=== PATIENT | female | born 1955 | race Caucasian/White ===

== ENCOUNTER → 2017-03-11 | Outpatient (CLI) | payer OTHER ==
[2017-03-11 11:55] LABS: BLOOD UREA NITROGEN 40 mg/dL (7-18)
[2017-03-11 11:58] LABS: ASPARTATE AMINO TRANSFERASE 11 U/L (15-37)
== END | disposition home or self-care (01) ==
LOC: LAB 11:31
PROVIDERS: ATTEND Family Medicine
DX: E11.22 Type 2 diabetes mellitus with diabetic chronic kidney disease (principal); N18.9 Chronic kidney disease, unspecified
CPT/HCPCS: 36415; 80053; 83036

== ENCOUNTER → 2017-04-09 | Outpatient (CLI) | payer OTHER | END | disposition home or self-care (01) | LOC: CFH 09:09 | PROVIDERS: ATTEND Family Medicine | DX: Z12.31 Encounter for screening mammogram for malignant neoplasm of breast (principal); M85.88 Other specified disorders of bone density and structure, other site | CPT/HCPCS: 77063; 77080; G0202 ==

== ENCOUNTER → 2017-05-28 | Outpatient (CLI) | payer OTHER ==
[2017-05-28 14:58] LABS: PATH.CAST-FLAG NOT PRESENT; SPERM-FLAG NOT PRESENT; SRC-FLAG NOT PRESENT; XTAL-FLAG NOT PRESENT; YLC-FLAG NOT PRESENT
[2017-05-28 15:01] LABS: ASPARTATE AMINO TRANSFERASE 15 U/L (15-37); BLOOD UREA NITROGEN 25 mg/dL (7-18)
[2017-05-30 12:06] LABS: CREATININE URINE 27.8 mg/dL (Not Estab.)
== END | disposition home or self-care (01) ==
LOC: LAB 14:30
PROVIDERS: ATTEND Family Medicine
DX: I12.9 Hypertensive chronic kidney disease with stage 1 through stage 4 chronic kidney disease, or unspecified chronic kidney disease (principal); E11.22 Type 2 diabetes mellitus with diabetic chronic kidney disease; N18.9 Chronic kidney disease, unspecified; E78.2 Mixed hyperlipidemia; E55.9 Vitamin D deficiency, unspecified
CPT/HCPCS: 36415; 80053; 80061; 81001; 82043; 82306; 82570; 83036

== ENCOUNTER → 2017-06-26 | Outpatient (CLI) | payer OTHER | END | disposition home or self-care (01) | LOC: CFH 14:49 | PROVIDERS: ATTEND Family Medicine | DX: N18.9 Chronic kidney disease, unspecified (principal); E04.2 Nontoxic multinodular goiter | CPT/HCPCS: 76536; 76770 ==

== ENCOUNTER → 2017-08-19 | Outpatient (CLI) | payer OTHER ==
[2017-08-19 13:56] LABS: BASOPHILS # (AUTO) 0.05 x10^3/uL (0-0.1); BASOPHILS % (AUTO) 1 % (0-1); EOSINOPHILS # (AUTO) 0.18 x10^3/uL (0-0.4); EOSINOPHILS % (AUTO) 3 % (1-7); LYMPHOCYTES # (AUTO) 2.59 x10^3/uL (1-3.4); LYMPHOCYTES % (AUTO) 37 % (22-44); MD NO; MEAN CORPUSCULAR VOLUME 90.9 fL (80-100); MONOCYTES # (AUTO) 0.38 x10^3/uL (0.2-0.8); MONOCYTES % (AUTO) 5 % (2-9); NEUTROPHILS # (AUTO) 3.81 x10^3/uL (1.8-6.8); NEUTROPHILS % (AUTO) 54 % (42-75); PLATELET COUNT 230 x10^3/uL (130-400); RED BLOOD COUNT 4.45 x10^6/uL (3.82-5.3); RED CELL DISTRIBUTION WIDTH 14.1 % (9.6-15.2)
[2017-08-19 14:00] LABS: MICROSCOPIC INDICATED
[2017-08-19 14:10] LABS: ALANINE AMINOTRANSFERASE 19 U/L (12-78); ALBUMIN 3.2 g/dL (3.4-5.0); ANION GAP 7 mmol/L (5-15); CALCIUM 8.6 mg/dL (8.5-10.1); CHLORIDE 110 mmol/L (98-107)
[2017-08-19 14:15] LABS: CULTURE INDICATED? NO
[2017-08-19 14:21] LABS: ALKALINE PHOSPHATASE 84 U/L (45-117); BILIRUBIN,TOTAL 0.3 mg/dL (0.2-1.0); CHOL/HDL RATIO 2.3; CHOLESTEROL, TOTAL 196 mg/dL (140-239); CREATININE 1.42 mg/dL (0.55-1.02); HDL CHOL % 44 % (28-40); HDL CHOLESTEROL (DIRECT) 86 mg/dL (40-60); LDL CHOLESTEROL,CALCULATED 72 mg/dL (54-169); LDL/HDL RATIO 0.8 (0.5-3.0); TOTAL PROTEIN 7.5 g/dL (6.4-8.2); TRIGLYCERIDES 191 mg/dL (50-200); VLDL CHOLESTEROL 38 mg/dL (0-25)
[2017-08-19 15:26] LABS: HEMOGLOBIN A1C 8.6 % (4.2-6.3)
== END ==
LOC: LAB 13:23
PROVIDERS: ATTEND Family Medicine
DX: I12.9 Hypertensive chronic kidney disease with stage 1 through stage 4 chronic kidney disease, or unspecified chronic kidney disease (principal); E11.22 Type 2 diabetes mellitus with diabetic chronic kidney disease; E78.2 Mixed hyperlipidemia; N18.9 Chronic kidney disease, unspecified; E04.9 Nontoxic goiter, unspecified; E55.9 Vitamin D deficiency, unspecified
CPT/HCPCS: 36415; 80053; 80061; 81001; 82043; 82306; 82570; 83036; 84443; 85025

== ENCOUNTER → 2018-02-25 | Outpatient (CLI) | payer OTHER ==
[2018-02-25 14:57] LABS: BASOPHILS # (AUTO) 0.05 x10^3/uL (0-0.1); BASOPHILS % (AUTO) 1 % (0-1); EOSINOPHILS # (AUTO) 0.27 x10^3/uL (0-0.4); EOSINOPHILS % (AUTO) 4 % (1-7); LYMPHOCYTES # (AUTO) 2.38 x10^3/uL (1-3.4); LYMPHOCYTES % (AUTO) 34 % (22-44); MD NO; MEAN CORPUSCULAR HEMOGLOBIN 30.8 pg (27.0-34.8); MEAN CORPUSCULAR VOLUME 90.7 fL (80-100); MEAN PLATELET VOLUME 8.3 fL (7.4-10.4); MONOCYTES # (AUTO) 0.42 x10^3/uL (0.2-0.8); MONOCYTES % (AUTO) 6 % (2-9); NEUTROPHILS # (AUTO) 3.85 x10^3/uL (1.8-6.8); NEUTROPHILS % (AUTO) 55 % (42-75); PLATELET COUNT 191 x10^3/uL (130-400); RED BLOOD COUNT 4.11 x10^6/uL (3.82-5.3); RED CELL DISTRIBUTION WIDTH 13.3 % (9.6-15.2)
[2018-02-25 15:04] LABS: ALANINE AMINOTRANSFERASE 21 U/L (12-78); ANION GAP 7 mmol/L (5-15); CALCIUM 8.6 mg/dL (8.5-10.1); CHLORIDE 110 mmol/L (98-107); CREATININE 1.78 mg/dL (0.55-1.02)
[2018-02-25 15:06] LABS: ALKALINE PHOSPHATASE 112 U/L (45-117); BILIRUBIN,TOTAL 0.3 mg/dL (0.2-1.0); TOTAL PROTEIN 7.3 g/dL (6.4-8.2)
[2018-02-25 15:15] LABS: CREATININE,URINE RANDOM 26.4 mg/dL
[2018-02-25 15:24] LABS: MICROSCOPIC INDICATED
== END | disposition home or self-care (01) ==
LOC: LAB 14:32
PROVIDERS: ATTEND Internal Medicine Nephrology
DX: N18.9 Chronic kidney disease, unspecified (principal)
CPT/HCPCS: 36415; 80053; 81001; 82570; 84100; 84156; 85025

== ENCOUNTER → 2018-03-21 | Outpatient (CLI) | payer OTHER ==
[2018-03-21 16:08] LABS: % IRON SATURATION 30 % (20-55); ANION GAP 5 mmol/L (5-15); CALCIUM 8.8 mg/dL (8.5-10.1); CHLORIDE 114 mmol/L (98-107); CREATININE 1.51 mg/dL (0.55-1.02); IRON LEVEL 71 mcg/dL (50-170); TOTAL IRON BINDING CAPACITY 234 mcg/dL (250-450)
[2018-03-21 16:32] LABS: CREATININE,URINE RANDOM 17.4 mg/dL; MICROSCOPIC INDICATED
[2018-03-21 16:33] LABS: CULTURE INDICATED? NO
== END | disposition home or self-care (01) ==
LOC: LAB 14:52
PROVIDERS: ATTEND Internal Medicine Nephrology
DX: N18.9 Chronic kidney disease, unspecified (principal)
CPT/HCPCS: 36415; 80069; 80074; 81001; 81050; 82306; 82570; 82728; 83520; 83540; 83550; 83883; 83970; 84156; 84550; 86160; 86162; 86256; 86430; 86701; 86702

== ENCOUNTER → 2018-04-08 | Outpatient (CLI) | payer OTHER ==
[2018-04-08 15:00] LABS: BASOPHILS # (AUTO) 0.05 x10^3/uL (0-0.1); BASOPHILS % (AUTO) 1 % (0-1); EOSINOPHILS # (AUTO) 0.23 x10^3/uL (0-0.4); EOSINOPHILS % (AUTO) 3 % (1-7); LYMPHOCYTES # (AUTO) 1.79 x10^3/uL (1-3.4); LYMPHOCYTES % (AUTO) 26 % (22-44); MD NO; MEAN CORPUSCULAR HEMOGLOBIN 31.3 pg (27.0-34.8); MEAN CORPUSCULAR HGB CONC 33.7 g/dL (32.4-35.8); MEAN CORPUSCULAR VOLUME 92.8 fL (80-100); MEAN PLATELET VOLUME 8.1 fL (7.4-10.4); MONOCYTES # (AUTO) 0.46 x10^3/uL (0.2-0.8); MONOCYTES % (AUTO) 7 % (2-9); NEUTROPHILS # (AUTO) 4.43 x10^3/uL (1.8-6.8); NEUTROPHILS % (AUTO) 64 % (42-75); PLATELET COUNT 215 x10^3/uL (130-400); RED BLOOD COUNT 3.94 x10^6/uL (3.82-5.3); RED CELL DISTRIBUTION WIDTH 13.7 % (9.6-15.2)
[2018-04-08 15:11] LABS: ANION GAP 7 mmol/L (5-15); CALCIUM 8.6 mg/dL (8.5-10.1); CHLORIDE 113 mmol/L (98-107); CREATININE 1.82 mg/dL (0.55-1.02)
[2018-04-08 15:12] LABS: ALANINE AMINOTRANSFERASE 23 U/L (12-78); CHOLESTEROL, TOTAL 201 mg/dL (140-239)
[2018-04-08 15:22] LABS: ALKALINE PHOSPHATASE 105 U/L (45-117); BILIRUBIN,TOTAL 0.3 mg/dL (0.2-1.0); CHOL/HDL RATIO 2.5; HDL CHOL % 41 % (28-40); HDL CHOLESTEROL (DIRECT) 82 mg/dL (40-60); LDL CHOLESTEROL,CALCULATED 87 mg/dL (54-169); LDL/HDL RATIO 1.1 (0.5-3.0); TOTAL PROTEIN 7.4 g/dL (6.4-8.2); TRIGLYCERIDES 158 mg/dL (50-200); VLDL CHOLESTEROL 32 mg/dL (0-25)
[2018-04-08 15:49] LABS: HEMOGLOBIN A1C 8.4 % (4.2-6.3)
[2018-04-08 16:04] LABS: MICROSCOPIC INDICATED
== END | disposition home or self-care (01) ==
LOC: LAB 14:48
PROVIDERS: ATTEND Family Medicine
DX: I12.9 Hypertensive chronic kidney disease with stage 1 through stage 4 chronic kidney disease, or unspecified chronic kidney disease (principal); N18.9 Chronic kidney disease, unspecified; E11.65 Type 2 diabetes mellitus with hyperglycemia; E78.2 Mixed hyperlipidemia; E04.9 Nontoxic goiter, unspecified
CPT/HCPCS: 36415; 80053; 80061; 81001; 82043; 82570; 83036; 84443; 85025

== ENCOUNTER → 2018-04-19 | Outpatient (CLI) | payer OTHER ==
[~2018-04-19] MED LIST: AMLO5TAB7 PO; EXEN5PEN2 BC; INSU100V8 SQ; LINA5TAB PO; LISI-170 PO; ROSU10TA PO; VIT D; ZOLP-413 PO
[2018-04-19 09:07] LABS: BASOPHILS # (AUTO) 0.07 x10^3/uL (0-0.1); BASOPHILS % (AUTO) 1 % (0-1); EOSINOPHILS # (AUTO) 0.26 x10^3/uL (0-0.4); EOSINOPHILS % (AUTO) 4 % (1-7); LYMPHOCYTES # (AUTO) 2.15 x10^3/uL (1-3.4); LYMPHOCYTES % (AUTO) 29 % (22-44); MD NO; MEAN CORPUSCULAR HEMOGLOBIN 30.6 pg (27.0-34.8); MEAN CORPUSCULAR HGB CONC 33.6 g/dL (32.4-35.8); MEAN CORPUSCULAR VOLUME 91.3 fL (80-100); MEAN PLATELET VOLUME 8.1 fL (7.4-10.4); MONOCYTES % (AUTO) 7 % (2-9); NEUTROPHILS # (AUTO) 4.49 x10^3/uL (1.8-6.8); NEUTROPHILS % (AUTO) 60 % (42-75); PLATELET COUNT 206 x10^3/uL (130-400); RED BLOOD COUNT 3.96 x10^6/uL (3.82-5.3); RED CELL DISTRIBUTION WIDTH 13.4 % (9.6-15.2)
[2018-04-19 09:19] LABS: ALBUMIN 3.2 g/dL (3.4-5.0); ANION GAP 8 mmol/L (5-15); CALCIUM 8.4 mg/dL (8.5-10.1); CHLORIDE 108 mmol/L (98-107); CREATININE 1.64 mg/dL (0.55-1.02)
== END | disposition home or self-care (01) ==
LOC: LAB 08:25
PROVIDERS: ATTEND Internal Medicine Nephrology
DX: N18.9 Chronic kidney disease, unspecified (principal)
CPT/HCPCS: 36415; 80069; 82570; 84156; 85025

== ENCOUNTER 2018-04-21 05:35 | Day surgery (SDC) | payer OTHER ==
[~2018-04-21] VITALS: Ht 170.2 cm; Wt 84.1 kg
[2018-04-21 06:24] VITALS: BP 155/99
[2018-04-21] MEDS ORDERED: INSU100V8 SQ (06:48)
[2018-04-21] MEDS ORDERED: AMLO5TAB7 PO (07:06)
[2018-04-21] MEDS ORDERED: LINA5TAB PO (07:06)
[2018-04-21] MEDS ORDERED: ZOLP-413 PO (07:06)
[2018-04-21] MEDS ORDERED: VIT D (07:06)
[2018-04-21] MEDS ORDERED: LISI-170 PO (07:06)
[2018-04-21] MEDS ORDERED: EXEN5PEN2 BC (07:06)
[2018-04-21] MEDS ORDERED: ROSU10TA PO (07:06)
[2018-04-21 07:30] LABS: PROTHROMBIN TIME 10.4 Seconds (9.6-11.5)
[2018-04-21] MEDS ORDERED: FENTANYL PF 100 MCG/2ML ONE (07:43)
[2018-04-21] MEDS ORDERED: FLUMAZENIL 0.1 MG/1 ML, 5ML ONE (07:44)
[2018-04-21] MEDS ORDERED: NALOXONE 1 MG/ML, 2ML ONE (07:44)
[2018-04-21] MEDS ORDERED: MIDAZOLAM 1 MG/ML, 5ML ONE (07:44)
[2018-04-21] MEDS ORDERED: LIDOCAINE-MPF 1%, 5ML ONE (07:46)
[2018-04-21] MEDS ORDERED: morphine SULFATE 10 MG/ML, 1ML ONE (09:22)
[2018-04-21] MEDS ORDERED: PROMETHAZINE 25 MG/ML, 1ML IM ONE (10:00)
[2018-04-21] MEDS ORDERED: MEPERIDINE/PF 25MG/0.5ML IM PRN (10:00)
[2018-04-21] MEDS ORDERED: MORPHINE SULFATE 4 MG/ML, 1ML IVPush ONE (10:00)
== END 2018-04-21 13:05 | disposition home or self-care (01) ==
LOC: OUT 05:35 → EDSTATUS 07:30 → OUT 13:05
PROVIDERS: ATTEND Internal Medicine Nephrology
DX: E11.22 Type 2 diabetes mellitus with diabetic chronic kidney disease (principal); I12.9 Hypertensive chronic kidney disease with stage 1 through stage 4 chronic kidney disease, or unspecified chronic kidney disease; N18.9 Chronic kidney disease, unspecified; E11.21 Type 2 diabetes mellitus with diabetic nephropathy
CPT/HCPCS: 50200; 77012; 82962; 85610; 88300; 99156; J2250; J3010; 99157; J2310

== ENCOUNTER → 2018-07-01 | Outpatient (CLI) | payer OTHER ==
[~2018-07-01] MED LIST changes: +AMLO-150 PO; -AMLO5TAB7 PO
[2018-07-01 14:48] LABS: BASOPHILS # (AUTO) 0.05 x10^3/uL (0-0.1); BASOPHILS % (AUTO) 1 % (0-1); EOSINOPHILS % (AUTO) 3 % (1-7); LYMPHOCYTES # (AUTO) 1.69 x10^3/uL (1-3.4); LYMPHOCYTES % (AUTO) 27 % (22-44); MD NO; MEAN CORPUSCULAR HEMOGLOBIN 31.2 pg (27.0-34.8); MEAN CORPUSCULAR HGB CONC 33.8 g/dL (32.4-35.8); MEAN CORPUSCULAR VOLUME 92.5 fL (80-100); MEAN PLATELET VOLUME 7.9 fL (7.4-10.4); MONOCYTES % (AUTO) 6 % (2-9); NEUTROPHILS # (AUTO) 4.03 x10^3/uL (1.8-6.8); NEUTROPHILS % (AUTO) 63 % (42-75); PLATELET COUNT 193 x10^3/uL (130-400); RED BLOOD COUNT 3.94 x10^6/uL (3.82-5.3); RED CELL DISTRIBUTION WIDTH 13.7 % (9.6-15.2)
[2018-07-01 14:58] LABS: MICROSCOPIC AUTO
[2018-07-01 15:00] LABS: ALANINE AMINOTRANSFERASE 21 U/L (12-78); ALBUMIN 3.3 g/dL (3.4-5.0); ANION GAP 7 mmol/L (5-15); CALCIUM 8.6 mg/dL (8.5-10.1); CHLORIDE 110 mmol/L (98-107); CREATININE 1.96 mg/dL (0.55-1.02)
[2018-07-01 15:11] LABS: ALKALINE PHOSPHATASE 97 U/L (45-117); BILIRUBIN,TOTAL 0.2 mg/dL (0.2-1.0); CHOL/HDL RATIO 2.4; CHOLESTEROL, TOTAL 196 mg/dL (140-239); HDL CHOL % 42 % (28-40); HDL CHOLESTEROL (DIRECT) 82 mg/dL (40-60); LDL CHOLESTEROL,CALCULATED 85 mg/dL (54-169); TOTAL PROTEIN 7.5 g/dL (6.4-8.2); TRIGLYCERIDES 144 mg/dL (50-200); VLDL CHOLESTEROL 29 mg/dL (0-25)
[2018-07-01 17:03] LABS: HEMOGLOBIN A1C 6.8 % (4.2-6.3)
== END | disposition home or self-care (01) ==
LOC: LAB 14:24
PROVIDERS: ATTEND Family Medicine
DX: E78.2 Mixed hyperlipidemia (principal); I12.0 Hypertensive chronic kidney disease with stage 5 chronic kidney disease or end stage renal disease; E11.22 Type 2 diabetes mellitus with diabetic chronic kidney disease; N18.9 Chronic kidney disease, unspecified; E03.9 Hypothyroidism, unspecified; E55.9 Vitamin D deficiency, unspecified
CPT/HCPCS: 36415; 80053; 80061; 81001; 82043; 82306; 82570; 83036; 84443; 85025

== ENCOUNTER → 2018-07-29 | Outpatient (CLI) | payer OTHER ==
[2018-07-29 14:55] LABS: MICROSCOPIC AUTO
[2018-07-29 14:56] LABS: CULTURE INDICATED? NO
[2018-07-29 15:00] LABS: BASOPHILS # (AUTO) 0.04 x10^3/uL (0-0.1); BASOPHILS % (AUTO) 1 % (0-1); EOSINOPHILS # (AUTO) 0.18 x10^3/uL (0-0.4); EOSINOPHILS % (AUTO) 3 % (1-7); LYMPHOCYTES # (AUTO) 1.85 x10^3/uL (1-3.4); LYMPHOCYTES % (AUTO) 28 % (22-44); MD NO; MEAN CORPUSCULAR HEMOGLOBIN 31.1 pg (27.0-34.8); MEAN CORPUSCULAR VOLUME 91.5 fL (80-100); MEAN PLATELET VOLUME 7.9 fL (7.4-10.4); MONOCYTES % (AUTO) 5 % (2-9); NEUTROPHILS # (AUTO) 4.22 x10^3/uL (1.8-6.8); NEUTROPHILS % (AUTO) 64 % (42-75); PLATELET COUNT 205 x10^3/uL (130-400); RED BLOOD COUNT 3.92 x10^6/uL (3.82-5.3); RED CELL DISTRIBUTION WIDTH 13.8 % (9.6-15.2)
[2018-07-29 15:03] LABS: CALCIUM 8.5 mg/dL (8.5-10.1); CHLORIDE 114 mmol/L (98-107)
[2018-07-29 15:11] LABS: % IRON SATURATION 24 % (20-55); ALBUMIN 3.2 g/dL (3.4-5.0); ANION GAP 6 mmol/L (5-15); CREATININE 2.15 mg/dL (0.55-1.02); IRON LEVEL 65 mcg/dL (50-170); TOTAL IRON BINDING CAPACITY 269 mcg/dL (250-450)
[2018-07-29 16:00] LABS: CREATININE,URINE RANDOM 38.2 mg/dL
== END | disposition home or self-care (01) ==
LOC: LAB 14:27
PROVIDERS: ATTEND Internal Medicine Nephrology
DX: E11.22 Type 2 diabetes mellitus with diabetic chronic kidney disease (principal); I12.9 Hypertensive chronic kidney disease with stage 1 through stage 4 chronic kidney disease, or unspecified chronic kidney disease; N18.9 Chronic kidney disease, unspecified
CPT/HCPCS: 36415; 80069; 81001; 82306; 82570; 82728; 83540; 83550; 83970; 84156; 85025

== ENCOUNTER 2018-10-23 15:10 | Inpatient (IN) | payer OTHER ==
[~2018-10-23] VITALS: Ht 170.2 cm; Wt 87.9 kg
[~2018-10-23 15:10] MED LIST changes: -ROSU10TA PO; +ROSU10TA2 PO
--- NOTE | 2018-10-23 15:23 | NUR ---
NO ANSWER X 1 WHEN CALLED FROM [facility]
--- NOTE | 2018-10-23 15:35 | NUR ---
FINGERSTICK GLUCOSE 37 IN TRIAGE. PT GIVEN JUICE IN TRIAGE, TOLERATING PO INTAKE AT THIS TIME. PT WHEELED TO ROOM 1.
--- NOTE | 2018-10-23 15:46 | NUR ---
PT TO ROOM 1 W/ C/O FEELING SHAKY, DISORIENTED, CLAMMY. PT DRINKING JUICE UPON HEEL PADDER. PT STATES SHE FELT THE SAME WAY THIS AM. BS WAS LOW. DRANK JUICE RECHECKED BS AT 1400 AND WAS 87. WHEN PT ARRIVED TO WORK PT HAS SX AND CALLED DAUGHTER WHO BROUGHT PT TO ED. PT POSITIONED ON RVERNAL. PIV INITIATED. PT ENCOURAGED TO FINISH JUICE.
[2018-10-23 15:57] LABS: BASOPHILS # (AUTO) 0.05 x10^3/uL (0-0.1); BASOPHILS % (AUTO) 1 % (0-1); EOSINOPHILS # (AUTO) 0.19 x10^3/uL (0-0.4); EOSINOPHILS % (AUTO) 2 % (1-7); LYMPHOCYTES # (AUTO) 3.02 x10^3/uL (1-3.4); LYMPHOCYTES % (AUTO) 36 % (22-44); MD NO; MEAN CORPUSCULAR HEMOGLOBIN 31.1 pg (27.0-34.8); MEAN CORPUSCULAR HGB CONC 33.7 g/dL (32.4-35.8); MEAN CORPUSCULAR VOLUME 92.1 fL (80-100); MEAN PLATELET VOLUME 8.5 fL (7.4-10.4); MONOCYTES # (AUTO) 0.57 x10^3/uL (0.2-0.8); MONOCYTES % (AUTO) 7 % (2-9); NEUTROPHILS # (AUTO) 4.65 x10^3/uL (1.8-6.8); NEUTROPHILS % (AUTO) 55 % (42-75); PLATELET COUNT 217 x10^3/uL (130-400); RED BLOOD COUNT 4.03 x10^6/uL (3.82-5.3); RED CELL DISTRIBUTION WIDTH 13.9 % (9.6-15.2)
[2018-10-23 16:08] LABS: ALANINE AMINOTRANSFERASE 36 U/L (12-78); ANION GAP 7 mmol/L (5-15); CALCIUM 8.4 mg/dL (8.5-10.1); CHLORIDE 119 mmol/L (98-107); CREATININE 2.87 mg/dL (0.55-1.02)
[2018-10-23 16:11] LABS: ALKALINE PHOSPHATASE 130 U/L (45-117); BILIRUBIN,TOTAL 0.3 mg/dL (0.2-1.0)
--- NOTE | 2018-10-23 16:24 | NUR ---
PT RESTING ON GURNEY. H[place]. VSS. PT STATES SHE FEELS MUCH IMPROVED AFTER JUICE.
[2018-10-23] MEDS ORDERED: SODIUM CHLORIDE FLUSH 10ML SYR IVF ONE (16:30)
--- NOTE | 2018-10-23 16:43 | NUR ---
PT AWARE OF NEED FOR UA AND STOOL SAMPLE.
[2018-10-23 17:14] LABS: MICROSCOPIC AUTO
[2018-10-23 17:15] LABS: CULTURE INDICATED? NO
[2018-10-23] MEDS ORDERED: SODIUM CHLORIDE 0.9% 1,000ML IVBOLUS ONE (17:30)
--- NOTE | 2018-10-23 17:30 | NUR ---
PT PROVIDED W/ CRACKERS, PEANUT BUTTER, AND JUICE WHILE AWAITING PT MEAL TRAY. PER ERP DR. PARKER NO NEED FOR IV DEXTROSE AT THIS TIME W/ BS AT 68.
--- NOTE | 2018-10-23 17:43 | NUR ---
PT PROVIDED W/ MEAL TRAY.
--- NOTE | 2018-10-23 18:12 | NUR ---
PT FINISHED EATING, DRANK JUICE, AND BS RECHECKED. PT BS 64. ERP NOTIFIED.
[2018-10-23] MEDS ORDERED: DEXTROSE 50%, 50ML SYRINGE IVPush ONE (18:30)
--- NOTE | 2018-10-23 18:55 | NUR ---
[facility] TO SEND D5W 1000 ML BAG. PHARMACY TO SEND PROTOCOL.
[2018-10-23 19:07] LABS: CLOSTRIDIUM DIFFICILE ANTIGEN NEGATIVE; CLOSTRIDIUM DIFFICILE TOXIN NEGATIVE (Negative)
--- NOTE | 2018-10-23 19:09 | NUR ---
REPORT GIVEN TO RACHEL COTTRELL RN.
[2018-10-23] MEDS: DEXTROSE 5% 1,000 ML IV SCH (19:11)
--- NOTE | 2018-10-23 19:12 | NUR ---
REPORT FROM DIETER LEAHY. D5W STARTED. WILL RECHECK BS AFTER 1 HOUR.
[2018-10-23] MEDS ORDERED: ONDANSETRON ODT 4 MG PO PRN (20:00)
[2018-10-23] MEDS ORDERED: BISACODYL 10 MG SUPP PR PRN (20:00)
[2018-10-23] MEDS ORDERED: POLYETHYLENE GLYCOL 17 GM PACKET PO PRN (20:00)
[2018-10-23] MEDS ORDERED: hydrALAzine 20 MG/ML, 1ML IVPush PRN (20:00)
[2018-10-23] MEDS ORDERED: DOCUSATE 100 MG CAPSULE PO PRN (20:00)
[2018-10-23] MEDS ORDERED: morphine SULFATE 10 MG/ML, 1ML IVPush PRN (20:00)
[2018-10-23] MEDS ORDERED: OXYcodone IR 5MG TABLET PO PRN (20:00)
[2018-10-23] MEDS ORDERED: ONDANSETRON 2MG/ML, 2ML IVPush PRN (20:00)
[2018-10-23] MEDS ORDERED: ACETAMINOPHEN 325 MG TABLET PO PRN (20:00)
[2018-10-23] MEDS ORDERED: PROMETHAZINE 25 MG/ML, 1ML IM PRN (20:00)
--- NOTE | 2018-10-23 20:19 | NUR ---
FSBG 102. PT TO BE ADMITTED. PT HAS NO NEEDS AT THIS THIS TIME
[2018-10-23] MEDS: D5%-0.9% NACL 1,000 ML IV SCH (20:29)
[2018-10-23 20:32] LABS: FREE T4 (FREE THYROXINE) 1.04 ng/dL (0.76-1.46); THYROID STIMULATING HORMONE 0.317 mIU/L (0.358-3.740)
[2018-10-23 20:41] LABS: HEMOGLOBIN A1C 6.4 % (4.2-6.3)
[2018-10-23] MEDS: LISINOPRIL 20 MG TABLET PO SCH (21:00)
[2018-10-23] MEDS: ZOLPIDEM 5MG TABLET PO SCH (21:00)
[2018-10-23] MEDS: INSULIN LISPRO 100 UNITS/ML, PEN SQ-INSULIN SCH (21:00)
[2018-10-23] MEDS: ATORVASTATIN 20 MG TABLET PO SCH (21:00)
[2018-10-23 21:10] VITALS: BP 170/86
[2018-10-24 00:22] VITALS: BP 158/83
[2018-10-24] MEDS: DEXTROSE 5% 1,000 ML IV SCH (01:10)
[2018-10-24] MEDS ORDERED: METO-282 PO (02:29)
[2018-10-24] MEDS ORDERED: GABA-826 PO (02:29)
[2018-10-24 04:51] LABS: BASOPHILS # (AUTO) 0.03 x10^3/uL (0-0.1); BASOPHILS % (AUTO) 1 % (0-1); EOSINOPHILS # (AUTO) 0.21 x10^3/uL (0-0.4); EOSINOPHILS % (AUTO) 3 % (1-7); LYMPHOCYTES # (AUTO) 3.07 x10^3/uL (1-3.4); LYMPHOCYTES % (AUTO) 47 % (22-44); MD NO; MEAN CORPUSCULAR HEMOGLOBIN 31.2 pg (27.0-34.8); MEAN CORPUSCULAR HGB CONC 33.2 g/dL (32.4-35.8); MEAN CORPUSCULAR VOLUME 93.8 fL (80-100); MEAN PLATELET VOLUME 8.4 fL (7.4-10.4); MONOCYTES % (AUTO) 8 % (2-9); NEUTROPHILS # (AUTO) 2.71 x10^3/uL (1.8-6.8); NEUTROPHILS % (AUTO) 42 % (42-75); PLATELET COUNT 165 x10^3/uL (130-400); RED BLOOD COUNT 3.37 x10^6/uL (3.82-5.3)
[2018-10-24 05:14] LABS: CHLORIDE 120 mmol/L (98-107)
[2018-10-24 05:23] LABS: ALANINE AMINOTRANSFERASE 25 U/L (12-78); ALBUMIN 2.2 g/dL (3.4-5.0); ALKALINE PHOSPHATASE 109 U/L (45-117); ANION GAP 7 mmol/L (5-15); BILIRUBIN,TOTAL 0.2 mg/dL (0.2-1.0); CALCIUM 7.5 mg/dL (8.5-10.1); CHOL/HDL RATIO 1.9; CHOLESTEROL, TOTAL 105 mg/dL (140-239); CREATININE 2.41 mg/dL (0.55-1.02); HDL CHOL % 52 % (28-40); HDL CHOLESTEROL (DIRECT) 55 mg/dL (40-60); LDL CHOLESTEROL,CALCULATED 16 mg/dL (54-169); LDL/HDL RATIO 0.3 (0.5-3.0); TOTAL PROTEIN 5.4 g/dL (6.4-8.2); TRIGLYCERIDES 169 mg/dL (50-200); VLDL CHOLESTEROL 34 mg/dL (0-25)
[2018-10-24] MEDS: D5%-0.9% NACL 1,000 ML IV SCH (06:04)
[2018-10-24 06:47] VITALS: BP 151/81
[2018-10-24] MEDS: INSULIN LISPRO 100 UNITS/ML, PEN SQ-INSULIN SCH ×4 (07:00→20:38)
[2018-10-24] MEDS: AMLODIPINE 5 MG TABLET PO SCH (09:01)
[2018-10-24 14:39] VITALS: BP 127/72
[2018-10-24 18:46] VITALS: BP 144/77
[2018-10-24] MEDS: ZOLPIDEM 5MG TABLET PO SCH (20:37)
[2018-10-24] MEDS: ATORVASTATIN 20 MG TABLET PO SCH (20:37)
[2018-10-24] MEDS: LISINOPRIL 20 MG TABLET PO SCH (20:37)
[2018-10-25 01:17] VITALS: BP 131/77
[2018-10-25 07:00] VITALS: BP 158/85
[2018-10-25] MEDS: AMLODIPINE 5 MG TABLET PO SCH (08:17)
[2018-10-25] MEDS: INSULIN LISPRO 100 UNITS/ML, PEN SQ-INSULIN SCH ×3 (08:19→16:16)
[2018-10-25 13:00] VITALS: BP 156/84
[2018-10-25] MEDS ORDERED: INSU100I13 SQ (16:07)
[2018-10-25] MEDS ORDERED: INSU100I11 SQ-INSULIN (16:07)
== END 2018-10-25 20:38 | disposition home or self-care (01) | DRG 683 ==
LOC: ED 18:58 → EDIP 19:37 → 3NE 20:51
PROVIDERS: ADMIT Internal Medicine; ATTEND Internal Medicine
DX: N17.0 Acute kidney failure with tubular necrosis (principal); E44.0 Moderate protein-calorie malnutrition; E11.22 Type 2 diabetes mellitus with diabetic chronic kidney disease; E11.649 Type 2 diabetes mellitus with hypoglycemia without coma; Z68.30 Body mass index [BMI] 30.0-30.9, adult; E11.65 Type 2 diabetes mellitus with hyperglycemia; E78.5 Hyperlipidemia, unspecified; N18.3 Chronic kidney disease, stage 3 (moderate); I12.9 Hypertensive chronic kidney disease with stage 1 through stage 4 chronic kidney disease, or unspecified chronic kidney disease; K52.9 Noninfective gastroenteritis and colitis, unspecified; Z79.4 Long term (current) use of insulin; Z83.3 Family history of diabetes mellitus
CPT/HCPCS: 36415; J7042; 71046; 80053; 80061; 81001; 82962; 83036; 83735; 84439; 84443; 85025; 87324; 89055; 93005; G0378; J7070; J1815; J7030

== ENCOUNTER → 2018-12-03 | Outpatient (CLI) | payer OTHER ==
[~2018-12-03] MED LIST changes: +GABA-826 PO; +INSU100I11 SQ-INSULIN; +INSU100I13 SQ; +METO-282 PO
[2018-12-03 10:35] LABS: MICROSCOPIC AUTO
[2018-12-03 10:43] LABS: ALANINE AMINOTRANSFERASE 22 U/L (12-78); ANION GAP 7 mmol/L (5-15); CALCIUM 8.6 mg/dL (8.5-10.1); CHLORIDE 117 mmol/L (98-107); CHOLESTEROL, TOTAL 204 mg/dL (140-239); CREATININE 2.52 mg/dL (0.55-1.02)
[2018-12-03 10:46] LABS: BASOPHILS # (AUTO) 0.05 x10^3/uL (0-0.1); BASOPHILS % (AUTO) 1 % (0-1); EOSINOPHILS # (AUTO) 0.28 x10^3/uL (0-0.4); EOSINOPHILS % (AUTO) 4 % (1-7); LYMPHOCYTES # (AUTO) 2.15 x10^3/uL (1-3.4); LYMPHOCYTES % (AUTO) 31 % (22-44); MD NO; MEAN CORPUSCULAR HEMOGLOBIN 30.7 pg (27.0-34.8); MEAN CORPUSCULAR HGB CONC 32.7 g/dL (32.4-35.8); MEAN PLATELET VOLUME 8.3 fL (7.4-10.4); MONOCYTES # (AUTO) 0.43 x10^3/uL (0.2-0.8); MONOCYTES % (AUTO) 6 % (2-9); NEUTROPHILS # (AUTO) 3.95 x10^3/uL (1.8-6.8); NEUTROPHILS % (AUTO) 58 % (42-75); PLATELET COUNT 193 x10^3/uL (130-400); RED BLOOD COUNT 3.79 x10^6/uL (3.82-5.3); RED CELL DISTRIBUTION WIDTH 14.1 % (9.6-15.2)
[2018-12-03 10:54] LABS: ALKALINE PHOSPHATASE 98 U/L (45-117); BILIRUBIN,TOTAL 0.3 mg/dL (0.2-1.0); CHOL/HDL RATIO 2.5; HDL CHOL % 40 % (28-40); HDL CHOLESTEROL (DIRECT) 81 mg/dL (40-60); LDL CHOLESTEROL,CALCULATED 93 mg/dL (54-169); LDL/HDL RATIO 1.1 (0.5-3.0); TOTAL PROTEIN 7.1 g/dL (6.4-8.2); TRIGLYCERIDES 151 mg/dL (50-200); VLDL CHOLESTEROL 30 mg/dL (0-25)
[2018-12-03 10:59] LABS: HEMOGLOBIN A1C 7.6 % (4.2-6.3)
== END | disposition home or self-care (01) ==
LOC: LAB 10:07
PROVIDERS: ATTEND Family Medicine
DX: E78.2 Mixed hyperlipidemia (principal); E03.9 Hypothyroidism, unspecified; I10 Essential (primary) hypertension; I12.9 Hypertensive chronic kidney disease with stage 1 through stage 4 chronic kidney disease, or unspecified chronic kidney disease; E11.22 Type 2 diabetes mellitus with diabetic chronic kidney disease; N18.9 Chronic kidney disease, unspecified
CPT/HCPCS: 36415; 80053; 80061; 81001; 82043; 82306; 82570; 83036; 84443; 85025

== ENCOUNTER 2018-12-30 14:35 | Outpatient (CLI) | payer OTHER | END 2018-12-30 23:59 | disposition home or self-care (01) | LOC: LAB 14:35 | PROVIDERS: ATTEND Internal Medicine Nephrology | DX: N18.9 Chronic kidney disease, unspecified (principal) | CPT/HCPCS: 36415; 80069; 81001; 82570; 83970; 84156; 85025 ==

== ENCOUNTER 2019-01-06 14:51 | Outpatient (CLI) | payer OTHER ==
[2019-01-06 15:21] LABS: T4 (THYROXINE) 9.6 mcg/dL (4.8-13.9)
== END 2019-01-06 23:59 | disposition home or self-care (01) ==
LOC: LAB 14:51
PROVIDERS: ATTEND Family Medicine
DX: E03.9 Hypothyroidism, unspecified (principal)
CPT/HCPCS: 36415; 84436; 84443; 84480

== ENCOUNTER → 2019-04-07 | Outpatient (CLI) | payer OTHER ==
[2019-04-07 15:02] LABS: BASOPHILS # (AUTO) 0.05 x10^3/uL (0-0.1); BASOPHILS % (AUTO) 1 % (0-1); EOSINOPHILS % (AUTO) 4 % (1-7); LYMPHOCYTES % (AUTO) 30 % (22-44); MD NO; MEAN CORPUSCULAR HEMOGLOBIN 30.8 pg (27.0-34.8); MEAN CORPUSCULAR HGB CONC 33.3 g/dL (32.4-35.8); MEAN CORPUSCULAR VOLUME 92.6 fL (80-100); MEAN PLATELET VOLUME 8.1 fL (7.4-10.4); MONOCYTES # (AUTO) 0.47 x10^3/uL (0.2-0.8); MONOCYTES % (AUTO) 6 % (2-9); NEUTROPHILS # (AUTO) 4.57 x10^3/uL (1.8-6.8); NEUTROPHILS % (AUTO) 59 % (42-75); PLATELET COUNT 202 x10^3/uL (130-400); RED CELL DISTRIBUTION WIDTH 13.8 % (9.6-15.2)
[2019-04-07 15:10] LABS: ALBUMIN 3.2 g/dL (3.4-5.0); ANION GAP 6 mmol/L (5-15); CALCIUM 8.6 mg/dL (8.5-10.1); CHLORIDE 112 mmol/L (98-107); CREATININE 2.92 mg/dL (0.55-1.02)
[2019-04-07 15:43] LABS: MICROSCOPIC AUTO
[2019-04-07 15:48] LABS: CREATININE,URINE RANDOM 40.3 mg/dL
== END | disposition home or self-care (01) ==
LOC: LAB 14:34
PROVIDERS: ATTEND Internal Medicine Nephrology
DX: I12.9 Hypertensive chronic kidney disease with stage 1 through stage 4 chronic kidney disease, or unspecified chronic kidney disease (principal); N18.4 Chronic kidney disease, stage 4 (severe); R80.8 Other proteinuria; E66.3 Overweight; Z68.30 Body mass index [BMI] 30.0-30.9, adult; Z83.3 Family history of diabetes mellitus; Z84.89 Family history of other specified conditions
CPT/HCPCS: 36415; 80069; 81001; 82570; 84156; 84550; 85025

== ENCOUNTER 2019-06-26 14:22 | Outpatient (CLI) | payer OTHER ==
[2019-06-26 14:46] LABS: BASOPHILS # (AUTO) 0.04 x10^3/uL (0-0.1); BASOPHILS % (AUTO) 1 % (0-1); EOSINOPHILS % (AUTO) 4 % (1-7); LYMPHOCYTES # (AUTO) 2.75 x10^3/uL (1-3.4); LYMPHOCYTES % (AUTO) 39 % (22-44); MD NO; MEAN CORPUSCULAR HEMOGLOBIN 30.2 pg (27.0-34.8); MEAN CORPUSCULAR HGB CONC 33.1 g/dL (32.4-35.8); MEAN CORPUSCULAR VOLUME 91.3 fL (80-100); MEAN PLATELET VOLUME 7.4 fL (7.4-10.4); MONOCYTES # (AUTO) 0.46 x10^3/uL (0.2-0.8); MONOCYTES % (AUTO) 7 % (2-9); NEUTROPHILS # (AUTO) 3.59 x10^3/uL (1.8-6.8); NEUTROPHILS % (AUTO) 50 % (42-75); PLATELET COUNT 262 x10^3/uL (130-400); RED BLOOD COUNT 3.65 x10^6/uL (3.82-5.3)
[2019-06-26 14:49] LABS: MICROSCOPIC AUTO
[2019-06-26 14:54] LABS: CALCIUM 8.7 mg/dL (8.5-10.1)
[2019-06-26 15:00] LABS: % IRON SATURATION 29 % (20-55); ALBUMIN 3.2 g/dL (3.4-5.0); ANION GAP 8 mmol/L (5-15); CALCIUM 8.7 mg/dL (8.5-10.1); CHLORIDE 113 mmol/L (98-107); CREATININE 3.12 mg/dL (0.55-1.02); IRON LEVEL 72 mcg/dL (50-170); TOTAL IRON BINDING CAPACITY 247 mcg/dL (250-450)
[2019-06-26 15:03] LABS: CREATININE,URINE RANDOM 15.6 mg/dL
== END 2019-06-26 23:59 | disposition home or self-care (01) ==
LOC: LAB 14:22
PROVIDERS: ATTEND Internal Medicine Nephrology
DX: E11.22 Type 2 diabetes mellitus with diabetic chronic kidney disease (principal); I12.9 Hypertensive chronic kidney disease with stage 1 through stage 4 chronic kidney disease, or unspecified chronic kidney disease; N18.4 Chronic kidney disease, stage 4 (severe); E55.9 Vitamin D deficiency, unspecified; D63.8 Anemia in other chronic diseases classified elsewhere; E87.2 Acidosis; N25.81 Secondary hyperparathyroidism of renal origin; R80.8 Other proteinuria
CPT/HCPCS: 36415; 80069; 81001; 82306; 82310; 82570; 82728; 83036; 83540; 83550; 83735; 83970; 84156; 84550; 85025

== ENCOUNTER → 2019-07-20 | Outpatient (CLI) | payer OTHER | END | disposition home or self-care (01) | LOC: CFH 13:52 | PROVIDERS: ATTEND Nurse Practitioner | DX: E04.1 Nontoxic single thyroid nodule (principal) | CPT/HCPCS: 76536 ==

== ENCOUNTER → 2019-07-31 | Outpatient (CLI) | payer OTHER ==
[2019-07-31 09:27] LABS: BASOPHILS # (AUTO) 0.04 x10^3/uL (0-0.1); BASOPHILS % (AUTO) 1 % (0-1); EOSINOPHILS % (AUTO) 5 % (1-7); LYMPHOCYTES # (AUTO) 3.17 x10^3/uL (1-3.4); LYMPHOCYTES % (AUTO) 42 % (22-44); MD NO; MEAN CORPUSCULAR HEMOGLOBIN 30.3 pg (27.0-34.8); MEAN CORPUSCULAR HGB CONC 33.1 g/dL (32.4-35.8); MEAN CORPUSCULAR VOLUME 91.8 fL (80-100); MEAN PLATELET VOLUME 6.4 fL (7.4-10.4); MONOCYTES # (AUTO) 0.54 x10^3/uL (0.2-0.8); MONOCYTES % (AUTO) 7 % (2-9); NEUTROPHILS # (AUTO) 3.34 x10^3/uL (1.8-6.8); NEUTROPHILS % (AUTO) 45 % (42-75); PLATELET COUNT 260 x10^3/uL (130-400); RED BLOOD COUNT 3.25 x10^6/uL (3.82-5.3); RED CELL DISTRIBUTION WIDTH 13.4 % (9.6-15.2)
[2019-07-31 09:34] LABS: MICROSCOPIC AUTO
[2019-07-31 09:40] LABS: ALBUMIN 2.6 g/dL (3.4-5.0); ANION GAP 7 mmol/L (5-15); CALCIUM 8.2 mg/dL (8.5-10.1); CHLORIDE 108 mmol/L (98-107)
[2019-07-31 09:43] LABS: ALANINE AMINOTRANSFERASE 23 U/L (12-78); ALKALINE PHOSPHATASE 81 U/L (45-117); BILIRUBIN,TOTAL 0.2 mg/dL (0.2-1.0); CREATININE 3.19 mg/dL (0.55-1.02); TOTAL PROTEIN 7.1 g/dL (6.4-8.2)
[2019-07-31 10:26] LABS: CREATININE,URINE RANDOM 14.3 mg/dL
== END | disposition home or self-care (01) ==
LOC: LAB 09:05
PROVIDERS: ATTEND Nurse Practitioner Family
DX: E11.22 Type 2 diabetes mellitus with diabetic chronic kidney disease (principal); I12.9 Hypertensive chronic kidney disease with stage 1 through stage 4 chronic kidney disease, or unspecified chronic kidney disease; N18.4 Chronic kidney disease, stage 4 (severe); E55.9 Vitamin D deficiency, unspecified; D63.8 Anemia in other chronic diseases classified elsewhere; E87.2 Acidosis; N25.81 Secondary hyperparathyroidism of renal origin; R80.8 Other proteinuria; R31.9 Hematuria, unspecified; E79.0 Hyperuricemia without signs of inflammatory arthritis and tophaceous disease
CPT/HCPCS: 36415; 80053; 81001; 82570; 84156; 85025

== ENCOUNTER → 2019-10-01 | Outpatient (CLI) | payer OTHER ==
[2019-10-01 12:22] LABS: % IRON SATURATION 38 % (20-55); ALBUMIN 2.7 g/dL (3.4-5.0); ANION GAP 7 mmol/L (5-15); CHLORIDE 113 mmol/L (98-107); IRON LEVEL 88 mcg/dL (50-170); TOTAL IRON BINDING CAPACITY 231 mcg/dL (250-450)
[2019-10-01 12:25] LABS: MICROSCOPIC AUTO
[2019-10-01 12:36] LABS: CREATININE,URINE RANDOM 34.8 mg/dL
== END | disposition home or self-care (01) ==
LOC: LAB 11:38
PROVIDERS: ATTEND Nurse Practitioner
DX: E11.22 Type 2 diabetes mellitus with diabetic chronic kidney disease (principal); I12.9 Hypertensive chronic kidney disease with stage 1 through stage 4 chronic kidney disease, or unspecified chronic kidney disease; N18.4 Chronic kidney disease, stage 4 (severe); D63.8 Anemia in other chronic diseases classified elsewhere; E55.9 Vitamin D deficiency, unspecified
CPT/HCPCS: 36415; 80069; 81001; 82306; 82310; 82570; 82728; 83036; 83540; 83550; 83970; 84156; 84550

== ENCOUNTER 2020-03-28 13:45 | Day surgery (SDC) | payer OTHER ==
[~2020-03-28] VITALS: Ht 170.2 cm; Wt 81.0 kg
[2020-03-28] MEDS ORDERED: CHLORHEXIDINE 15 ML UDC MM STA (14:26)
[2020-03-28 14:28] VITALS: BP 200/110
[2020-03-28] MEDS ORDERED: SODIUM CHLORIDE 0.9% 1,000 ML IV SCH (14:30)
[2020-03-28] MEDS ORDERED: BENZ100C PO (14:41)
[2020-03-28] MEDS ORDERED: FURO20TA3 PO (14:41)
[2020-03-28] MEDS ORDERED: CALC0.25 PO (14:41)
[2020-03-28] MEDS ORDERED: ZOLP5TAB6 PO (14:41)
[2020-03-28] MEDS ORDERED: SODI650T PO (14:41)
[2020-03-28 15:29] LABS: BASOPHILS % (AUTO) 1 % (0-1); EOSINOPHILS % (AUTO) 5 % (1-7); LYMPHOCYTES % (AUTO) 45 % (22-44); MEAN CORPUSCULAR HEMOGLOBIN 30.6 pg (27.0-34.8); MEAN CORPUSCULAR HGB CONC 32.8 g/dL (32.4-35.8); MEAN PLATELET VOLUME 8.5 fL (7.4-10.4); MONOCYTES % (AUTO) 9 % (2-9); NEUTROPHILS % (AUTO) 40 % (42-75); PLATELET COUNT 168 x10^3/uL (130-400); RED BLOOD COUNT 4.05 x10^6/uL (3.82-5.3); RED CELL DISTRIBUTION WIDTH 14.7 % (9.6-15.2)
[2020-03-28 15:37] LABS: ANION GAP 10 mmol/L (5-15); CALCIUM 9.1 mg/dL (8.5-10.1); CHLORIDE 97 mmol/L (98-107); CREATININE 7.22 mg/dL (0.55-1.02)
[2020-03-28 15:38] LABS: MD NO
[2020-03-28] MEDS ORDERED: MIDAZOLAM 1 MG/ML, 2ML ONE (18:28)
[2020-03-28] MEDS ORDERED: FENTANYL PF 100 MCG/2ML ONE ×3 (18:28→20:18)
[2020-03-28] MEDS ORDERED: LIDOCAINE PF 2%, 5ML ONE (18:45)
[2020-03-28] MEDS ORDERED: FENTANYL PF 100 MCG/2ML IV PRN (19:00)
[2020-03-28] MEDS ORDERED: MEPERIDINE/PF 25MG/0.5ML IVPush PRN (19:00)
[2020-03-28] MEDS ORDERED: ONDANSETRON 2MG/ML, 2ML IVPush PRN ×2 (19:00→22:00)
[2020-03-28] MEDS ORDERED: EPHEDRINE 50 MG/ML, 1ML IVPush PRN (19:00)
[2020-03-28] MEDS ORDERED: HYDROmorphone 1 MG/ML, 1ML INJ IVPush PRN (19:00)
[2020-03-28] MEDS ORDERED: LABETALOL 5MG/ML, 20ML IV PRN (19:00)
[2020-03-28] MEDS ORDERED: PROMETHAZINE 25 MG/ML, 1ML IVPush PRN (19:00)
[2020-03-28] MEDS ORDERED: ACETAMINOPHEN 325 MG TABLET PO PRN (19:00)
[2020-03-28] MEDS ORDERED: OXYcodone 5 MG/5 ML ORAL.SOL UDC PO PRN (19:00)
[2020-03-28] MEDS ORDERED: hydrALAzine 20 MG/ML, 1ML IV PRN (19:00)
[2020-03-28] MEDS ORDERED: HEPARIN 1,000 UNITS/ML, 10ML IV ONE (19:12)
[2020-03-28] MEDS ORDERED: DEXAMETHASONE 4 MG/ML, 1ML ONE (19:38)
[2020-03-28] MEDS ORDERED: PROPOFOL 10 MG/ML, 20ML ONE (19:38)
[2020-03-28] MEDS ORDERED: ONDANSETRON 2MG/ML, 2ML ONE (19:38)
[2020-03-28] MEDS ORDERED: CEFAZOLIN 1,000 MG ONE (19:38)
[2020-03-28] MEDS ORDERED: BUPIVACAINE 0.25% INFIL ONE (19:48)
[2020-03-28] MEDS ORDERED: HEPARIN 1,000 UNITS/ML, 10ML ONE (20:07)
[2020-03-28] MEDS ORDERED: BUPIVACAINE/PF 0.25% ONE (20:07)
[2020-03-28] MEDS ORDERED: PROTAMINE SULFATE 10 MG/ML, 5ML ONE (20:08)
[2020-03-28] MEDS ORDERED: OXYcodone 5 MG/5 ML ORAL.SOL UDC ONE (20:18)
[2020-03-28] MEDS ORDERED: HYDR-3240 PO (21:31)
[2020-03-28] MEDS ORDERED: MORPHINE SULFATE 4 MG/ML, 1ML IVPush PRN (22:00)
[2020-03-28] MEDS ORDERED: HYDROcodone/APAP 5/325 TABLET PO PRN (22:00)
== END 2020-03-28 23:00 | disposition home IV services (08) ==
LOC: OR 13:45 → 4NE 21:00 → OR 23:00
PROVIDERS: ATTEND Surgery
DX: I12.0 Hypertensive chronic kidney disease with stage 5 chronic kidney disease or end stage renal disease (principal); E11.22 Type 2 diabetes mellitus with diabetic chronic kidney disease; N18.6 End stage renal disease; D64.9 Anemia, unspecified; Z20.828 Contact with and (suspected) exposure to other viral communicable diseases; Z79.4 Long term (current) use of insulin; Z79.899 Other long term (current) drug therapy; Z98.890 Other specified postprocedural states; Z87.891 Personal history of nicotine dependence; Z72.89 Other problems related to lifestyle; Z82.49 Family history of ischemic heart disease and other diseases of the circulatory system; Z83.3 Family history of diabetes mellitus
CPT/HCPCS: 36830; 80048; 82962; 85025; 87635; 93005; C1768; J0690; J1100; J1644; J2250; J2405; J2704; J2720; J3010; G0378

== ENCOUNTER → 2020-08-22 | Outpatient (CLI) | payer MEDICARE ==
[~2020-08-22] MED LIST changes: +BENZ100C PO; +CALC0.25 PO; +CALC0.5C9 PO; +CALC667C PO; +CARV12.52 PO; +FURO20TA3 PO; +HYDR-1067 PO; +INSU100I11 SQ; +NIFE-7 PO; +SODI650T PO; +ZOLP5TAB6 PO
[2020-08-22 15:05] LABS: ALANINE AMINOTRANSFERASE 17 U/L (12-78); ALBUMIN 3.8 g/dL (3.4-5.0); ANION GAP 8 mmol/L (5-15); CALCIUM 8.9 mg/dL (8.5-10.1); CHLORIDE 98 mmol/L (98-107); CREATININE 7.35 mg/dL (0.55-1.02)
[2020-08-22 15:08] LABS: ALKALINE PHOSPHATASE 58 U/L (45-117); BILIRUBIN,TOTAL 0.5 mg/dL (0.2-1.0); TOTAL PROTEIN 7.7 g/dL (6.4-8.2)
== END | disposition home or self-care (01) ==
LOC: STAR 13:54
PROVIDERS: ATTEND Internal Medicine
DX: Z01.818 Encounter for other preprocedural examination (principal); K52.9 Noninfective gastroenteritis and colitis, unspecified; R94.31 Abnormal electrocardiogram [ECG] [EKG]; Z20.822 Contact with and (suspected) exposure to COVID-19
CPT/HCPCS: 36415; 80053; 93005; U0003

== ENCOUNTER 2020-08-26 06:26 | Day surgery (SDC) | payer MEDICARE, OTHER ==
[~2020-08-26] VITALS: Ht 167.6 cm; Wt 80.0 kg
[2020-08-26] MEDS ORDERED: LACTATED RINGERS 1,000 ML IV SCH ×2 (07:00)
[2020-08-26] MEDS ORDERED: CHLORHEXIDINE 15 ML UDC PO ONE (07:00)
[2020-08-26 07:20] VITALS: BP 156/78
[2020-08-26] MEDS ORDERED: SODIUM CHLORIDE 0.9% 1,000 ML IV SCH (07:30)
[2020-08-26 07:32] LABS: BASOPHILS % (AUTO) 1 % (0-1); EOSINOPHILS % (AUTO) 3 % (1-7); LYMPHOCYTES % (AUTO) 37 % (22-44); MEAN CORPUSCULAR HEMOGLOBIN 32.9 pg (27.0-34.8); MEAN CORPUSCULAR HGB CONC 33.4 g/dL (32.4-35.8); MEAN PLATELET VOLUME 7.8 fL (7.4-10.4); MONOCYTES % (AUTO) 9 % (2-9); NEUTROPHILS % (AUTO) 50 % (42-75); PLATELET COUNT 169 x10^3/uL (130-400); RED BLOOD COUNT 4.27 x10^6/uL (3.82-5.3); RED CELL DISTRIBUTION WIDTH 15.6 % (9.6-15.2)
[2020-08-26] MEDS ORDERED: PROPOFOL 10 MG/ML, 20ML ONE ×2 (07:32→08:00)
[2020-08-26 07:38] LABS: MD NO
[2020-08-26] MEDS ORDERED: ALBUTEROL SULFATE 2.5 MG/3 ML NPPB PRN (08:00)
[2020-08-26] MEDS ORDERED: ACETAMINOPHEN 325 MG TABLET PO PRN (08:00)
[2020-08-26] MEDS ORDERED: hydrALAzine 20 MG/ML, 1ML IV PRN (08:00)
[2020-08-26] MEDS ORDERED: LABETALOL 5MG/ML, 20ML IV PRN (08:00)
[2020-08-26] MEDS ORDERED: OXYcodone 5 MG/5 ML ORAL.SOL UDC PO PRN (08:00)
[2020-08-26] MEDS ORDERED: ONDANSETRON 2MG/ML, 2ML IVPush PRN (08:00)
[2020-08-26] MEDS ORDERED: FENTANYL PF 100 MCG/2ML IV PRN (08:00)
== END 2020-08-26 09:00 | disposition home or self-care (01) ==
LOC: OUT 06:26
PROVIDERS: ATTEND Internal Medicine
DX: K52.9 Noninfective gastroenteritis and colitis, unspecified (principal); D12.2 Benign neoplasm of ascending colon; K57.30 Diverticulosis of large intestine without perforation or abscess without bleeding; E11.22 Type 2 diabetes mellitus with diabetic chronic kidney disease; I12.0 Hypertensive chronic kidney disease with stage 5 chronic kidney disease or end stage renal disease; N18.6 End stage renal disease; E78.5 Hyperlipidemia, unspecified; D64.9 Anemia, unspecified; Z79.899 Other long term (current) drug therapy; Z99.2 Dependence on renal dialysis
CPT/HCPCS: 45380; 82962; 85025; 88305; 93005; J2704

== ENCOUNTER 2020-09-09 10:10 | Outpatient (CLI) | payer MEDICARE ==
[~2020-09-09 10:10] MED LIST changes: -HYDR-1067 PO; +HYDR-2214 PO
[2020-12-09] MEDS ORDERED: FURO80TA3 PO (11:05)
[2020-12-09] MEDS ORDERED: INSU100I11 SQ (11:05)
== END 2020-09-09 23:59 | disposition home or self-care (01) ==
LOC: CFH 10:10
PROVIDERS: ATTEND Internal Medicine Nephrology
DX: Z01.818 Encounter for other preprocedural examination (principal); Z12.31 Encounter for screening mammogram for malignant neoplasm of breast; N18.6 End stage renal disease; R09.89 Other specified symptoms and signs involving the circulatory and respiratory systems; I12.9 Hypertensive chronic kidney disease with stage 1 through stage 4 chronic kidney disease, or unspecified chronic kidney disease; E11.22 Type 2 diabetes mellitus with diabetic chronic kidney disease; E55.9 Vitamin D deficiency, unspecified; D63.8 Anemia in other chronic diseases classified elsewhere; E87.2 Acidosis; N25.81 Secondary hyperparathyroidism of renal origin; R31.9 Hematuria, unspecified; R80.8 Other proteinuria; E79.0 Hyperuricemia without signs of inflammatory arthritis and tophaceous disease; E78.5 Hyperlipidemia, unspecified; E66.3 Overweight; Z99.2 Dependence on renal dialysis; Z68.28 Body mass index [BMI] 28.0-28.9, adult
CPT/HCPCS: 71046; 74176; 77063; 77067

== ENCOUNTER 2020-09-19 17:20 | Inpatient (IN) | payer MEDICARE ==
[~2020-09-19] VITALS: Ht 167.6 cm; Wt 81.0 kg
[~2020-09-19 17:20] MED LIST changes: +HYDR-1067 PO; -HYDR-2214 PO
--- NOTE | 2020-09-19 17:31 | NUR ---
PT PLACED ON 4L NC O2. EKG IN TRIAGE
--- NOTE | 2020-09-19 17:35 | NUR ---
PT PRESENTED TO ED D/T SOB X1 HOUR. PT ALSO STATES HYPERTENSION NOTED PRIOR TO ARRIVAL. PT'S CURRENTLY BP IS 195/97. HX OF DM AND DIALYSIS PT T,TH,SAT.
[2020-09-19] MEDS ORDERED: ROPI0.254 PO (17:43)
[2020-09-19] MEDS ORDERED: CARV12.52 PO (17:43)
[2020-09-19] MEDS ORDERED: ROSU10TA2 PO (17:43)
[2020-09-19] MEDS ORDERED: FURO20TA3 PO (17:43)
[2020-09-19] MEDS ORDERED: COLE1TAB2 PO (17:43)
[2020-09-19] MEDS ORDERED: PRAM0.125 PO (17:43)
--- NOTE | 2020-09-19 18:01 | NUR ---
PT AMBULATED TO RESTROOM WITH A STEADY GAIT.
--- NOTE | 2020-09-19 18:09 | NUR ---
PT STATED "THINKS MY BLOOD SUGAR IS LOW." RN CHECKED PT'S BGL. BGL 141.
--- NOTE | 2020-09-19 18:56 | NUR ---
REPORT FROM RM LEAHY
--- NOTE | 2020-09-19 18:57 | NUR ---
REPORT TO ARMOND MANZANARES.
[2020-09-19] MEDS ORDERED: ALBUTEROL/IPRATROPIUM 2.5MG/0.5MG, 3 ML ONE ×2 (19:00→19:07)
[2020-09-19] MEDS ORDERED: ALBUTEROL/IPRATROPIUM 2.5MG/0.5MG, 3 ML NPPB ONE (19:00)
[2020-09-19 19:02] LABS: BASOPHILS % (AUTO) 1 % (0-1); EOSINOPHILS % (AUTO) 2 % (1-7); LYMPHOCYTES % (AUTO) 16 % (22-44); MEAN CORPUSCULAR HEMOGLOBIN 32.4 pg (27.0-34.8); MEAN CORPUSCULAR HGB CONC 33.4 g/dL (32.4-35.8); MEAN PLATELET VOLUME 7.3 fL (7.4-10.4); MONOCYTES % (AUTO) 4 % (2-9); NEUTROPHILS % (AUTO) 77 % (42-75); PLATELET COUNT 230 x10^3/uL (130-400); RED BLOOD COUNT 3.28 x10^6/uL (3.82-5.3); RED CELL DISTRIBUTION WIDTH 14.9 % (9.6-15.2)
[2020-09-19 19:03] LABS: MD NO
[2020-09-19 19:06] LABS: ALANINE AMINOTRANSFERASE 18 U/L (12-78); ALBUMIN 3.6 g/dL (3.4-5.0); ANION GAP 9 mmol/L (5-15); CHLORIDE 99 mmol/L (98-107); CREATININE 7.71 mg/dL (0.55-1.02)
[2020-09-19 19:11] LABS: ALKALINE PHOSPHATASE 68 U/L (45-117); BILIRUBIN,TOTAL 0.6 mg/dL (0.2-1.0); TOTAL PROTEIN 7.6 g/dL (6.4-8.2); TROPONIN I 0.017 ng/mL (0.000-0.045)
--- NOTE | 2020-09-19 19:48 | NUR ---
PT GIVEN WARM BLANKET.
[2020-09-19] MEDS ORDERED: FUROSEMIDE 40 MG/4 ML ONE (20:22)
[2020-09-19] MEDS ORDERED: FUROSEMIDE 100 MG/10 ML IV ONE (20:30)
[2020-09-19] MEDS ORDERED: SODIUM CHLORIDE FLUSH 10ML SYR IVF PRN (20:30)
--- NOTE | 2020-09-19 20:41 | NUR ---
ATT #1 FOR REPORT, UNIT RN TO CALL BACK.
--- NOTE | 2020-09-19 20:56 | NUR ---
REPORT GIVEN TO XAVIER LEAHY
[2020-09-19 21:24] VITALS: BP 145/71
[2020-09-19] MEDS ORDERED: FURO40TA6 PO (21:33)
[2020-09-19] MEDS ORDERED: DOCUSATE 100 MG CAPSULE PO PRN (23:30)
[2020-09-19] MEDS ORDERED: ACETAMINOPHEN 325 MG TABLET PO PRN (23:30)
[2020-09-19] MEDS ORDERED: LIDODERM 5% PATCH TD PRN (23:30)
[2020-09-19] MEDS ORDERED: hydrALAzine 20 MG/ML, 1ML IVPush PRN (23:30)
[2020-09-20 01:31] VITALS: BP 154/71
[2020-09-20] MEDS: MELATONIN 5 MG TABLET PO PRN ×2 (02:03→22:23)
[2020-09-20 05:36] LABS: BASOPHILS % (AUTO) 1 % (0-1); EOSINOPHILS % (AUTO) 4 % (1-7); LYMPHOCYTES % (AUTO) 26 % (22-44); MEAN CORPUSCULAR HEMOGLOBIN 33.2 pg (27.0-34.8); MEAN CORPUSCULAR HGB CONC 33.8 g/dL (32.4-35.8); MEAN PLATELET VOLUME 7.3 fL (7.4-10.4); MONOCYTES % (AUTO) 6 % (2-9); NEUTROPHILS % (AUTO) 63 % (42-75); PLATELET COUNT 189 x10^3/uL (130-400); RED BLOOD COUNT 2.63 x10^6/uL (3.82-5.3); RED CELL DISTRIBUTION WIDTH 14.8 % (9.6-15.2)
[2020-09-20 05:38] LABS: MD NO
[2020-09-20 05:48] LABS: ANION GAP 9 mmol/L (5-15); CALCIUM 8.8 mg/dL (8.5-10.1); CHLORIDE 102 mmol/L (98-107)
[2020-09-20 06:37] VITALS: BP 167/79
[2020-09-20] MEDS: FUROSEMIDE 40 MG/4 ML IV SCH ×2 (07:38→20:13)
[2020-09-20] MEDS: INSULIN LISPRO 100 UNITS/ML, PEN SQ-INSULIN SCH ×3 (12:05→20:14)
[2020-09-20 13:26] VITALS: BP 179/82
[2020-09-20 19:36] VITALS: BP 190/89
[2020-09-20 21:21] VITALS: BP 185/83
[2020-09-20] MEDS: INSULIN GLARGINE 100 UNITS/ML, PEN SQ-INSULIN SCH (22:24)
[2020-09-21 00:15] VITALS: BP 148/73
[2020-09-21 06:53] VITALS: BP 159/67
[2020-09-21] MEDS: INSULIN LISPRO 100 UNITS/ML, PEN SQ-INSULIN SCH ×2 (08:40→11:53)
[2020-09-21] MEDS: INSULIN GLARGINE 100 UNITS/ML, PEN SQ-INSULIN SCH (09:53)
[2020-09-21] MEDS: FUROSEMIDE 40 MG/4 ML IV SCH (09:53)
== END 2020-09-21 14:00 | disposition home or self-care (01) | DRG 291 ==
LOC: ED 20:32 → EDIP 21:09 → 4WST 21:17 → DCLOUNGE 09-21 13:45
PROVIDERS: ADMIT Family Medicine; ATTEND Hospitalist
PROC: 5A1D70Z Performance of Urinary Filtration, Intermittent, Less than 6 Hours Per Day (ICD-10-PCS; principal; 2020-09-20)
DX: I13.2 Hypertensive heart and chronic kidney disease with heart failure and with stage 5 chronic kidney disease, or end stage renal disease (principal); N18.6 End stage renal disease; J96.01 Acute respiratory failure with hypoxia; I50.33 Acute on chronic diastolic (congestive) heart failure; E87.5 Hyperkalemia; D63.1 Anemia in chronic kidney disease; E11.22 Type 2 diabetes mellitus with diabetic chronic kidney disease; E11.42 Type 2 diabetes mellitus with diabetic polyneuropathy; E11.69 Type 2 diabetes mellitus with other specified complication; E78.5 Hyperlipidemia, unspecified; G25.81 Restless legs syndrome; K52.9 Noninfective gastroenteritis and colitis, unspecified; Z79.4 Long term (current) use of insulin; Z87.891 Personal history of nicotine dependence; Z99.2 Dependence on renal dialysis
CPT/HCPCS: 36415; 71045; 80048; 80053; 82728; 82962; 83540; 83550; 83880; 84100; 84484; 85025; 93005; 93306; 96374; 99285; G0378; J1940; J0360; J1815

== ENCOUNTER → 2021-03-06 | Outpatient (CLI) | payer MEDICARE ==
[~2021-03-06] MED LIST changes: +COLE1TAB2 PO; +FURO40TA6 PO; +FURO80TA3 PO; -HYDR-1067 PO; +HYDR-2214 PO; +PRAM0.125 PO; +REGADENOSON 0.4 MG/5 ML SYRINGE ONE; +ROPI0.254 PO
== END | disposition home or self-care (01) ==
LOC: CVU 06:30
PROVIDERS: ATTEND Internal Medicine Clinical Cardiac Electrophysiology
DX: I08.0 Rheumatic disorders of both mitral and aortic valves (principal); I13.2 Hypertensive heart and chronic kidney disease with heart failure and with stage 5 chronic kidney disease, or end stage renal disease; N18.6 End stage renal disease; E78.5 Hyperlipidemia, unspecified; E11.22 Type 2 diabetes mellitus with diabetic chronic kidney disease; I50.30 Unspecified diastolic (congestive) heart failure; Z99.2 Dependence on renal dialysis
CPT/HCPCS: 78452; 93017; 93306; A9502; J2785